=== PATIENT | male | born 1975 | race Hispanic/Latino ===

== ENCOUNTER 2016-11-21 23:22 | Emergency (ER) | payer OTHER ==
[~2016-11-21] VITALS: Ht 172.7 cm; Wt 90.7 kg
[~2016-11-21 23:22] MED LIST: IBUPROFEN800 M1 PO; LISINOPRIL20 M1 PO; PERCOCET 5-3251 EACH PO; PREDNISONE50 M1 PO
[2016-11-21 23:39] VITALS: BP 172/96
--- NOTE | 2016-11-21 23:43 | ED UPPER/LOWER EXTREMITY COMPL ---
History of Present Illness General Chief Complaint: Upper Extremity Problem Stated Complaint: "PER PT RT SHOULDER PAIN" Source: patient, family, old records Exam Limitations: no limitations Vital Signs & Intake/Output Vital Signs & Intake/Output Vital Signs Date Time Temp Pulse Resp B/P B/P Pulse O2 O2 Flow FiO2 Mean Ox Delivery Rate 11/21 2339 97.8 94 18 172/96 99 Room Air ED Intake and Output 11/22 0000 11/21 1200 Intake Total Output Total Balance Patient 200 lb Weight Weight Estimated Measurement Method Allergies Coded Allergies: shellfish derived (RASH, SWELLING 06/08/16) Reconcile Medications Ibuprofen 800 MG TABLET 1 TAB PO TID PRN PAIN Lisinopril 20 MG TABLET 1 TAB PO DAILY PRN DIRECTED (Reported) Oxycodone HCl/Acetaminophen (Percocet 5-325 MG Tablet) 5 MG-325 MG TABLET 1-2 TAB PO 4XDP PRN PAIN TWENTY...[id number] Oxycodone HCl/Acetaminophen (Percocet 5-325 MG Tablet) 5 MG-325 MG TABLET 1-2 TAB PO Q6P PRN PAIN Prednisone 50 MG TABLET 1 TAB PO DAILY RHEUMATOID ARTHRITIS Triage Note: PT TO ED C/O 04/08 R SHOULDER PAIN. PT HAS HX OF RHEUMATOID ARTHRITIS. PT HAS BEEN EXPERIENCING SHOULDER/BACK PAIN X1 MONTH. PT SAW [employer]OR [employer] SAF[employer]Y AND STATED PAIN SHOULD GET BETTER BUT HAS NOT. Triage Nurses Notes Reviewed? yes HPI: Patient presents to the emergency department with right shoulder pain for the past 3 days. Patient has rheumatoid arthritis and approximately one month ago started with the pain in his back that radiates down his right arm and made his fingers numb. He saw his primary care physician figured it might be of rheumatoid arthritis flare so started him on Humira and prednisone. Patient states that the symptoms are getting worse. Now he has severe intense 10 out of 10 throbbing pain to his right shoulder that increases with movement. There is no radiation of the shoulder pain. There are no fevers or chills. He denies any recent injury. Past History Travel History Traveled to [place] past 21 day No Medical History Any Pertinent Medical History? 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 No Review of Systems Review of Systems Constitutional: Reports: no symptoms. Respiratory: Reports: no symptoms. Cardiovascular: Reports: no symptoms. Gastrointestinal/Abdominal: Reports: no symptoms. Musculoskeletal: Reports: see HPI, joint pain. Neurological/Psychological: Reports: no symptoms. Hematologic/Endocrine: Reports: no symptoms. Immunological: Reports: no symptoms. Physical Exam Physical Exam General Appearance: well developed/nourished, alert, awake, anxious, moderate distress Head: atraumatic, normal appearance Eyes: Bilateral: PERRL, EOMI. Neck: normal inspection, supple, full range of motion, no midline tenderness Cardiovascular/Respiratory: normal breath sounds, normal peripheral pulses, regular rate/rhythm, no respiratory distress Back: normal inspection, normal range of motion, no vertebral tenderness Shoulder Right: tenderness, soft tissue tenderness, limited range of motion ( PAIN LIMITING) Elbow Right: normal range of motion, normal inspection Hand Right: normal inspection, normal range of motion Neurologic/Tendon: normal motor functions, normal tendon functions, sensory deficit (TO RIGHT 4TH AND 5TH FINGERS) Skin: intact, normal color, warm/dry Lymphatic: no anterior cervical tasha Progress Differential Diagnosis: contusion, dislocation, fracture, sprain Plan of Care: Orders Procedure Date/time Status Durable Medical Equipment 11/21 2349 Active Current Medications Sig/Sherry Start time Last Medication Dose Stop Time Status Admin Oxycodone/ 1 TAB ONCE ONE 11/21 2344 UNVr 11/21 Acetaminophen 11/216 2351 (Percocet) Diagnostic Imaging: Viewed by Me: Radiology Read. Discussed w/RAD: Radiology Read. Radiology Impression: PATIENT: SALLY JENSEN PRESENT AGE: 41 PATIENT ACCOUNT NO: [id number] : 73 LOCATION: [facility] ORDERING PHYSICIAN: SCOTTY WARD MD SERVICE DATE: 11/21/16 EXAM TYPE: RAD - XRY-SHOULDER COMPLETE-RIGHT EXAMINATION: XR SHOULDER, RIGHT CLINICAL INFORMATION: Pain. COMPARISON: None available. TECHNIQUE: 4 views of the right shoulder obtained. FINDINGS: No fracture. The bony articulations are maintained. Glenohumeral alignment appears normal. Acromioclavicular and coracoclavicular distances are normal. The visualized right lung is clear. There are no significant soft tissue findings. IMPRESSION: No acute osseous findings. DICTATED BY: DAKOTA MENDEZ MD DATE/TIME DICTATED:11/22/1616 BOTTOM BLEACHER:ALFREDO DATE/TIME TRANSCRIBED:11/22/1616 CONFIDENTIAL, DO NOT COPY WITHOUT APPROPRIATE AUTHORIZATION. <Electronically signed in Other Vendor System> SIGNED BY: DAKOTA MENDEZ MD 11/22/16 002 Departure Departure Disposition: HOME OR SELF CARE Condition: Stable Clinical Impression Primary Impression: Right shoulder pain Qualifiers: Chronicity: acute Qualified Code: M25.511 - Pain in right shoulder Referrals: CUCO HUTSON APRN (PCP/Family) Additional Instructions: FOLLOW UP WITH YOUR DOCTOR RETURN FOR ANY CONCERNS Departure Forms: Customer Survey General Discharge Information Prescriptions: Current Visit Scripts Oxycodone HCl/Acetaminophen (Percocet 5-325 MG Tablet) 1-2 TAB PO Q6P PRN PAIN #20 TAB
[2016-11-21] MEDS ORDERED: PERCOCET 5-3251 EACH PO (23:49)
--- NOTE | 2016-11-22 00:22 | RADIOLOGY REPORT ---
EXAMINATION: XR SHOULDER, RIGHT CLINICAL INFORMATION: Pain. COMPARISON: None available. TECHNIQUE: 4 views of the right shoulder obtained. FINDINGS: No fracture. The bony articulations are maintained. Glenohumeral alignment appears normal. Acromioclavicular and coracoclavicular distances are normal. The visualized right lung is clear. There are no significant soft tissue findings. IMPRESSION: No acute osseous findings.
== END 2016-11-22 00:39 ==
LOC: ERH 23:22
DX: M25.511 Pain in right shoulder (principal)
CPT/HCPCS: 73030-RT